=== PATIENT | male | born 1995 | race Two or more races ===

== ENCOUNTER 2017-06-06 17:21 | Emergency (ER) | payer OTHER ==
[~2017-06-06] VITALS: Ht 182.9 cm; Wt 126.6 kg
--- NOTE | 2017-06-06 17:35 | NUR ---
BIB SELF, C/O ABD PAIN W/ N/V/D, HEADACHE AFTER EATING FROM [employer] YESTERDAY, NAD NOTED, VSS, RESP EVEN AND UNLABORED. WAITING FOR MD NUÑEZ.
[2017-06-06] MEDS ORDERED: ACETAMINOPHEN 325 MG TABLET ONE (17:54)
[2017-06-06 17:56] LABS: BASOPHILS # (AUTO) 0.1 /CMM (0.0-0.2); BASOPHILS % (AUTO) 1.2 % (0.0-2.0); EOSINOPHILS # (AUTO) 0.1 /CMM (0.0-0.7); EOSINOPHILS % (AUTO) 0.6 % (0.0-6.0); HEMATOCRIT 48 % (39-51); HEMOGLOBIN 16.1 g/dL (13.5-17.5); LYMPHOCYTES # (AUTO) 1.1 /CMM (0.8-4.8); LYMPHOCYTES % (AUTO) 9.3 % (20.0-44.0); MEAN CORPUSCULAR HEMOGLOBIN 28 PG (26.0-33.0); MEAN CORPUSCULAR HGB CONC 34 g/dl (31.0-36.0); MEAN CORPUSCULAR VOLUME 83 fL (80-96); MONOCYTES % (AUTO) 8.3 % (2.0-12.0); NEUTROPHILS # (AUTO) 9.2 /CMM (1.8-8.9); NEUTROPHILS % (AUTO) 80.6 % (43.0-81.0); PLATELET COUNT (AUTO) 286 /CMM (150-450); RDW COEFFICIENT OF VARIATION 12.4 (11.5-15.0); RED BLOOD CELL COUNT(AUTO) 5.76 MIL/uL (4.5-6.0); WHITE BLOOD COUNT (AUTO) 11.6 K/uL (4.3-11.0)
[2017-06-06] MEDS ORDERED: ACETAMINOPHEN 325 MG TABLET PO ONE (18:00)
[2017-06-06 18:17] LABS: CALCIUM, SERUM 8.8 mg/dL (8.5-10.1); CREATININE 0.8 mg/dL (0.6-1.3); POTASSIUM 3.2 mmol/L (3.5-5.1)
[2017-06-06 18:22] LABS: BILIRUBIN,DIRECT 0.2 mg/dL (0.0-0.2); BILIRUBIN,TOTAL 1.2 mg/dL (0.2-1.0); TOTAL PROTEIN, SERUM 7.7 g/dL (6.4-8.2)
[2017-06-06] MEDS ORDERED: IV NS 0.9% 1,000 ML BAG IV ONE (18:30)
[2017-06-06] MEDS ORDERED: LOPERAMIDE HCL (2 MG CAP) 2 MG CAPSULE PO ONE ×2 (18:30→19:17)
[2017-06-06 19:56] LABS: APPEARANCE,URINE Cloudy (CLEAR); BILIRUBIN,URINE SMALL (NEGATIVE); BLOOD, URINE Moderate Ery/uL (NEGATIVE); COLOR,URINE Dark (YELLOW); KETONES,URINE Trace (NEGATIVE); LEUKOCYTE ESTERASE ,URINE Negative (NEGATIVE); NITRITE, URINE Negative (NEGATIVE); PH,URINE 6.5 (5.0-8.0); PROTEIN,URINE 30 mg/dl (NEGATIVE); UGLUCOSE Negative (NEGATIVE)
[2017-06-06 20:03] LABS: INR 1.12 (0.87-1.13); PROTHROMBIN TIME 11.6 SECS (9.5-12.7)
[2017-06-06] MEDS ORDERED: POTASSIUM CHLORIDE 20 MEQ TAB.PRT.SR PO ONE ×2 (21:00→21:03)
[2017-06-06 21:07] VITALS: BP 145/80
[2017-06-06 21:40] LABS: WBC,URINE 0-2 /HPF (0-3)
[2017-06-06 21:41] LABS: BACTERIA,URINE Rare /HPF (None Seen); MUCUS,URINE Few /LPF (None Seen); SQUAMOUS EPITHELIAL CELL,UR Few /HPF (None Seen); URINE AMORPHOUS URATE Many /HPF (None Seen)
== END 2017-06-06 21:11 | disposition home or self-care (01) ==
LOC: ER 17:23
DX: E86.0 Dehydration (principal); E87.6 Hypokalemia; R11.2 Nausea with vomiting, unspecified; R79.89 Other specified abnormal findings of blood chemistry
CPT/HCPCS: 36415; 71010; 80048; 80076; 81001; 83605; 85025; 85730; 87040 ×2; 87086; 93005; 96360; 99285; A4606; J7030; Z7610; 81000-TC

== ENCOUNTER 2017-09-05 08:32 | Emergency (ER) | payer OTHER ==
[~2017-09-05] VITALS: Ht 180.3 cm; Wt 136.1 kg
[2017-09-05 08:35] VITALS: BP 159/117
== END 2017-09-05 10:33 | disposition home or self-care (01) ==
LOC: ER 08:36
DX: M79.605 Pain in left leg (principal); R10.9 Unspecified abdominal pain; V49.49XA Driver injured in collision with other motor vehicles in traffic accident, initial encounter; Y93.89 Activity, other specified; Y92.410 Unspecified street and highway as the place of occurrence of the external cause; Y99.8 Other external cause status
CPT/HCPCS: 71250; 74176; 99284; A4606; Z7610

== ENCOUNTER 2017-11-30 20:14 | Emergency (ER) | payer OTHER ==
[~2017-11-30] VITALS: Ht 185.4 cm; Wt 127.0 kg
[2017-11-30 21:03] VITALS: BP 139/79
--- NOTE | 2017-11-30 21:30 | NUR ---
INFORMED "PT STEPPED OUTSIDE WITH MOTHER"
--- NOTE | 2017-11-30 21:41 | NUR ---
PT STILL NOT IN LOBBY
--- NOTE | 2017-11-30 22:52 | NUR ---
INFORMED BY ADMITTING "PT LEFT LONG TIME AGO"
== END 2017-11-30 22:54 | disposition left against medical advice (07) ==
LOC: ER 20:20
DX: Z53.21 Procedure and treatment not carried out due to patient leaving prior to being seen by health care provider (principal); R50.9 Fever, unspecified
CPT/HCPCS: A4606; Z7610

== ENCOUNTER 2017-12-01 13:42 | Emergency (ER) | payer OTHER ==
[~2017-12-01] VITALS: Ht 185.4 cm; Wt 133.8 kg
--- NOTE | 2017-12-01 13:42 | NUR ---
FEVER X 2 DAYS, TOOK TYLENLOL 650MG AROUND 9AM, +VOMITING
[2017-12-01] MEDS ORDERED: ACETAMINOPHEN 325 MG TABLET PO STA (14:10)
[2017-12-01] MEDS ORDERED: ACETAMINOPHEN ES 500 MG TABLET ONE (14:16)
[2017-12-01] MEDS ORDERED: IV NS 0.9% 1,000 ML BAG IV ONE (14:30)
--- NOTE | 2017-12-01 14:30 | NUR ---
RAC #[id number] IV ACCESS. BLOOD SAMPLE COLLECTED SENT TO LAB
[2017-12-01 14:33] LABS: BASOPHILS # (AUTO) 0.4 /CMM (0.0-0.2); BASOPHILS % (AUTO) 2.7 % (0.0-2.0); HEMATOCRIT 42 % (39-51); HEMOGLOBIN 14.9 g/dL (13.5-17.5); LYMPHOCYTES # (AUTO) 0.7 /CMM (0.8-4.8); LYMPHOCYTES % (AUTO) 5.2 % (20.0-44.0); MEAN CORPUSCULAR HGB CONC 35 g/dl (31.0-36.0); MEAN CORPUSCULAR VOLUME 81 fL (80-96); MONOCYTES % (AUTO) 7.3 % (2.0-12.0); NEUTROPHILS # (AUTO) 10.9 /CMM (1.8-8.9); NEUTROPHILS % (AUTO) 84.8 % (43.0-81.0); PLATELET COUNT (AUTO) 236 /CMM (150-450); RDW COEFFICIENT OF VARIATION 12.4 (11.5-15.0); WHITE BLOOD COUNT (AUTO) 13.1 K/uL (4.3-11.0)
[2017-12-01 14:44] LABS: CALCIUM, SERUM 8.4 mg/dL (8.5-10.1); CARBON DIOXIDE 25 mmol/L (21-32); CHLORIDE 98 mmol/L (98-107); GLUCOSE 118 mg/dL (74-106); POTASSIUM 3.4 mmol/L (3.5-5.1); SODIUM SERUM 131 mmol/L (136-145); UREA NITROGEN, BLOOD 7 mg/dL (7-18)
[2017-12-01 14:52] LABS: TROPONIN I < 0.017 ng/mL (0.00-0.056)
[2017-12-01 14:59] LABS: ALANINE AMINOTRANSFERASE 48 U/L (12-78); ALBUMIN 3.6 g/dL (3.4-5.0); ALKALINE PHOSPHATASE 55 U/L (46-116); ASPARTATE AMINOTRANSFERASE 22 U/L (15-37); BILIRUBIN,DIRECT 0.1 mg/dL (0.0-0.2); BILIRUBIN,TOTAL 0.8 mg/dL (0.2-1.0); INR 1.2 (0.85-1.15); TOTAL PROTEIN, SERUM 7.6 g/dL (6.4-8.2)
--- NOTE | 2017-12-01 15:03 | NUR ---
URINE SAMPLE COLLECTED SENT TO LAB
[2017-12-01 15:10] LABS: APPEARANCE,URINE SL CLOUDY (CLEAR); BILIRUBIN,URINE NEGATIVE (NEGATIVE); BLOOD, URINE 3+ Ery/uL (NEGATIVE); COLOR,URINE YELLOW (YELLOW); KETONES,URINE NEGATIVE (NEGATIVE); LEUKOCYTE ESTERASE ,URINE NEGATIVE (NEGATIVE); NITRITE, URINE NEGATIVE (NEGATIVE); PROTEIN,URINE 1+ mg/dl (NEGATIVE); UGLUCOSE NEGATIVE (NEGATIVE); UROBILINOGEN,URINE 0.2 EU/dL (0.2)
[2017-12-01] MEDS ORDERED: IV NS 0.9% 1,000 ML IV ONE (15:30)
[2017-12-01 15:38] LABS: BACTERIA,URINE Few /HPF (None Seen); SQUAMOUS EPITHELIAL CELL,UR Few /HPF (None Seen); WBC,URINE 0-2 /HPF (0-3)
[2017-12-01 17:30] VITALS: BP 148/70
--- NOTE | 2017-12-01 17:31 | NUR ---
Patient discharged to home in stable condition. Written and verbal after care instructions given. Patient verbalizes understanding of instruction.
--- NOTE | 2017-12-01 17:31 | NUR ---
IV removed. Catheter intact and site benign. Pressure and 4x4 applied to site. No bleeding noted.
== END 2017-12-01 17:31 | disposition home or self-care (01) ==
LOC: ER 13:44
DX: R50.9 Fever, unspecified (principal); R19.7 Diarrhea, unspecified
CPT/HCPCS: 36415; 80048-TC; 80076-TC; 81000-TC; 83605-TC; 84484-TC; 85025-TC; 85730-TC; 87040-TC; 87086-TC; A4606; J7030; Z7610

== ENCOUNTER 2018-04-05 08:24 | Emergency (ER) | payer OTHER ==
[~2018-04-05] VITALS: Ht 185.4 cm; Wt 129.3 kg
--- NOTE | 2018-04-05 08:25 | NUR ---
RIGHT FLANK PAIN X 1 WEEK, DENIES DYSURIA OR HEMATURIA. A/OX 4, BREATHING EVEN AND UNLABORED. NO SOB, NO DISTRESS. VSS. SAFETY AND COMFORT MEASURES IN PLACE. AWAITING MD ORDERS.
[2018-04-05 08:46] VITALS: BP 128/84
--- NOTE | 2018-04-05 08:50 | NUR ---
Patient discharged to home in stable condition. Written and verbal after care instructions given. Patient verbalizes understanding of instruction.
== END 2018-04-05 08:50 | disposition home or self-care (01) ==
LOC: ER 08:26
DX: M54.5 Low back pain (principal); E66.9 Obesity, unspecified
CPT/HCPCS: 99283; A4606; Z7610